=== PATIENT | male | born 1990 | race Caucasian/White ===

== ENCOUNTER 2020-03-15 10:30 | Emergency (ER) | payer OTHER ==
[~2020-03-15] VITALS: Ht 177.8 cm; Wt 74.4 kg
--- NOTE | 2020-03-15 10:45 | NUR ---
Pt was seen by .
[2020-03-15] MEDS ORDERED: LIDOCAINE HCL 2% 20 ML VIAL ONE (11:01)
--- NOTE | 2020-03-15 11:32 | NUR ---
faxed over clinicals to [facility] c/o Aleena [phone]
[2020-03-15] MEDS ORDERED: HYDROCODONE/APAP 10-325 MG TABLET PO ONE (12:00)
[2020-03-15] MEDS ORDERED: HYDROCODONE/APAP 5-325MG TABLET ONE (12:05)
--- NOTE | 2020-03-15 12:14 | NUR ---
Pt was medicated with [place] PO as ordered for pain.Pt appears to be comfortable,sleeping.Right arm elevated on the pillow.Will continue to monitor patient.Pt transfer is in process.Waiting for [facility] to call.
--- NOTE | 2020-03-15 13:40 | NUR ---
Spoke with [facility] at [phone].Still waiting for approval.Will continue to monitor.
--- NOTE | 2020-03-15 14:30 | NUR ---
Patient was taken by [facility] unit #30 in stable condition via gurney. All belongings with patient.
--- NOTE | 2020-03-15 14:58 | NUR ---
Spoke with ER charge nurse at [facility].Report given.
[2020-03-15 15:00] VITALS: BP 148/92
== END 2020-03-15 15:01 | disposition short-term general hospital (02) ==
LOC: EDBD 10:30 → ER 10:30
DX: M65.841 Other synovitis and tenosynovitis, right hand (principal); L03.113 Cellulitis of right upper limb
CPT/HCPCS: 73130; 99285; J3490; A4663

== ENCOUNTER 2020-03-31 11:11 | Emergency (ER) | payer OTHER ==
[~2020-03-31] VITALS: Ht 177.8 cm; Wt 74.4 kg
--- NOTE | 2020-03-31 11:37 | NUR ---
PT WAS EVALUATED BY DR BECERRIL. PT WAS D/C'd TO HOME. D/C INSTRUCTIONS GIVEN TO THE PT BY DR BECERRIL.
[2020-03-31 11:43] VITALS: BP 122/84
== END 2020-03-31 11:45 | disposition home or self-care (01) ==
LOC: ER 11:11
DX: Z47.81 Encounter for orthopedic aftercare following surgical amputation (principal); R60.0 Localized edema; Z89.021 Acquired absence of right finger(s); Z59.0 Homelessness
CPT/HCPCS: A4663

== ENCOUNTER 2020-05-18 15:22 | Emergency (ER) | payer OTHER ==
[~2020-05-18] VITALS: Ht 177.8 cm; Wt 74.4 kg
[2020-05-18] MEDS ORDERED: SULFAMETH/TRIMETH 800/160 MG TABLET ONE (16:00)
[2020-05-18] MEDS ORDERED: SULFAMETH/TRIMETH 800/160 MG TABLET PO ONE (16:00)
--- NOTE | 2020-05-18 16:05 | NUR ---
Patient given written and verbal discharge instructions. Patient verbalizes understanding of instructions. Patient is ambulatory with steady gait. Refuses offer of care home placement. Patient given list of available shelters in surrounding area.
== END 2020-05-18 16:51 | disposition home or self-care (01) ==
LOC: ER 15:22
DX: L01.00 Impetigo, unspecified (principal); B95.8 Unspecified staphylococcus as the cause of diseases classified elsewhere; Z59.0 Homelessness
CPT/HCPCS: A4663

== ENCOUNTER 2021-07-17 17:48 | Emergency (ER) | payer SELFPAY | END 2021-07-17 17:56 | disposition left against medical advice (07) | LOC: ER 17:48 | DX: Z53.21 Procedure and treatment not carried out due to patient leaving prior to being seen by health care provider (principal) | CPT/HCPCS: A4217 ==

== ENCOUNTER 2022-06-21 12:01 | Emergency (ER) | payer OTHER ==
[~2022-06-21] VITALS: Ht 172.7 cm; Wt 98.4 kg
[2022-06-21] MEDS ORDERED: LIDOCAINE HCL 1% 20 ML VIAL IJ ONE (14:30)
[2022-06-21] MEDS ORDERED: LIDOCAINE 2%-EPI 1:100,000 20 ML VIAL ONE (14:38)
[2022-06-21] MEDS ORDERED: LIDOCAINE HCL 1% 20 ML VIAL ONE (14:42)
[2022-06-21] MEDS ORDERED: CEphaleXIN 500 MG CAPSULE PO ONE (15:00)
[2022-06-21] MEDS ORDERED: SULFAMETH/TRIMETH 800/160 MG TABLET PO ONE (15:00)
[2022-06-21] MEDS ORDERED: SULF1TAB48 PO (15:03)
[2022-06-21] MEDS ORDERED: CEPH500C2 PO (15:03)
[2022-06-21] MEDS ORDERED: SULFAMETH/TRIMETH 800/160 MG TABLET ONE (15:06)
[2022-06-21] MEDS ORDERED: CEphaleXIN 500 MG CAPSULE ONE (15:06)
--- NOTE | 2022-06-21 15:23 | NUR ---
Bandaged leg wound with roller gauze. Gave pt RX and d/c instructions, pt verbalized understanding.
== END 2022-06-21 15:29 | disposition home or self-care (01) ==
LOC: ER 12:01
DX: S80.11XA Contusion of right lower leg, initial encounter (principal); X58.XXXA Exposure to other specified factors, initial encounter; Y92.89 Other specified places as the place of occurrence of the external cause; Z89.021 Acquired absence of right finger(s)
CPT/HCPCS: 99285; 10060; 76881; 76882; J3490; A4663